=== PATIENT | male | born 1985 | race Caucasian/White ===

== ENCOUNTER 2017-10-27 12:28 | Emergency (ER) | payer SELFPAY ==
[~2017-10-27] VITALS: Ht 167.6 cm; Wt 86.6 kg
[2017-10-27 13:13] VITALS: BP 145/102
== END 2017-10-27 13:18 | disposition home or self-care (01) ==
LOC: ED 12:50
DX: S61.011D Laceration without foreign body of right thumb without damage to nail, subsequent encounter (principal); F17.200 Nicotine dependence, unspecified, uncomplicated; X58.XXXD Exposure to other specified factors, subsequent encounter
CPT/HCPCS: 99281